=== PATIENT | female | born 1970 | race Caucasian/White ===

== ENCOUNTER 2022-01-05 14:11 | Outpatient (RCR) | payer OTHER, BC, SELFPAY ==
[2022-01-05 15:04] LABS: Albumin* 4.9 g/dL (3.3-5.0); Chloride* 100 mmol/L (96-114); Potassium* 3.6 mmol/L (3.6-5.1); Sodium* 140 mmol/L (135-149)
[2022-01-05 15:06] LABS: Bilirubin Total* 0.7 mg/dL (0.1-1.5); Carbon Dioxide* 29 mmol/L (20-32); Creatinine* 0.7 mg/dL (0.5-1.5); Estimated Glomerular Filt Rate 104 ml/min
[2022-01-05 15:07] LABS: Alanine Aminotransferase* 21 U/L (4-35); Alkaline Phosphatase* 55 U/L (40-150); Aspartate Amino Transferase* 30 U/L (12-35); Blood Urea Nitrogen* 20 mg/dL (7-30); Calcium* 9.6 mg/dL (8.4-10.6); Glucose* 68 mg/dL (60-115); Total Protein* 8.1 g/dL (6.0-8.3)
[2022-01-06 07:49] LABS: Basophils Absolute Auto 0.03 K/uL (0.00-0.30); Basophils Percent Auto 0.6 % (0.0-3.0); Eosinophils Absolute Auto 0.07 K/uL (0.00-0.50); Eosinophils Percent Auto 1.3 % (0.0-7.0); Hematocrit 44.7 % (33.0-51.0); Hemoglobin* 14.5 gm/dL (12.0-16.0); Immature Granulocytes Abs Auto 0.01 K/uL (0.00-0.30); Immature Granulocytes Pct Auto 0.2 %; Lymphocytes Absolute Auto 1.96 K/uL (0.90-2.90); Mean Corpuscular HGB Conc 32 gm/dL (32-36); Mean Corpuscular Hemoglobin 33 pg (26-34); Mean Corpuscular Volume 101 fL (80-100); Monocytes Percent Auto 8.3 % (0.0-11.0); Neutrophils Absolute Auto 2.92 K/uL (1.7-7.0); Neutrophils Percent Auto 53.6 % (42.0-72.0); Platelet Count* 274 K/uL (140-440); RDW Coefficient of Variation % 13.3 % (11.5-15.5); Red Blood Count 4.43 m/uL (4.00-5.20); White Blood Count* 5.44 K/uL (4.50-11.00)
[2022-01-06 07:51] LABS: Slide Review Reflex No
== END 2022-07-04 23:59 | disposition home or self-care (01) ==
LOC: CCIC 14:11
PROVIDERS: Visit Provider Internal Medicine Hematology & Oncology
DX: C50.911 Malignant neoplasm of unspecified site of right female breast (principal); Z17.0 Estrogen receptor positive status [ER+]; Z79.810 Long term (current) use of selective estrogen receptor modulators (SERMs)
CPT/HCPCS: 36415; 80053; 85025; 99212; 99213; 99214

== ENCOUNTER 2024-04-19 13:00 | Outpatient (RCR) | payer BC, OTHER, SELFPAY | END 2024-08-17 23:59 | disposition home or self-care (01) | PROVIDERS: PCP Obstetrics & Gynecology; Visit Provider Obstetrics & Gynecology | DX: M62.838 Other muscle spasm (principal); N94.10 Unspecified dyspareunia; Z51.89 Encounter for other specified aftercare | CPT/HCPCS: 97112; 97140; 97161; 97530; 97535 ==

== ENCOUNTER 2024-05-10 09:21 | Outpatient (CLI) | payer BC, OTHER, SELFPAY ==
--- NOTE | 2024-05-10 11:02 | P.ANES_ITS ---
Anesthesia Charges Start Date/Time Anesthesia Start Date: 05/10/24 Anesthesia Start Time: 10:48 Stop Date/Time Anesthesia Stop Date: 05/10/24 Anesthesia Stop Time: 11:20 Coding CPT Codes CPT Codes: ANES UPR LWR GI NDSC PX - 98721 ([id number]) P2 - PATIENT W/MILD SYST DISEASE, QK - DREDGE PUMPER 2-4 CNCRNT ANES PROC, QX - INFANT ROOM TEACHER SVC W/ MD MED DIRECTION
--- NOTE | 2024-05-10 11:02 | W.ANESCHARGE ---
Anesthesia Charges Start Date/Time Anesthesia Start Date: 05/10/24 Anesthesia Start Time: 10:48 Stop Date/Time Anesthesia Stop Date: 05/10/24 Anesthesia Stop Time: 11:20 Coding CPT Codes CPT Codes: ANES UPR LWR GI NDSC PX - [id number] ([id number]) P2 - PATIENT W/MILD SYST DISEASE, QK - HOOP RIVETER 2-4 CNCRNT ANES PROC, QX - COLOR ADVISER SVC W/ MD MED DIRECTION
--- NOTE | 2024-05-10 11:20 | P.ANES_ITS ---
Anesthesia Charges Start Date/Time Anesthesia Start Date: 05/10/24 Anesthesia Start Time: 10:48 Stop Date/Time Anesthesia Stop Date: 05/10/24 Anesthesia Stop Time: 11:20 Coding CPT Codes CPT Codes: ANES UPR LWR GI NDSC PX - 39579 ([id number]) P2 - PATIENT W/MILD SYST DISEASE, QX - ACCOUNT MANAGEMENT ASSISTANT SVC W/ MD MED DIRECTION, QK - TALENT ASSISTANT 2-4 CNCRNT ANES PROC
--- NOTE | 2024-05-10 11:20 | W.ANESCHARGE ---
Anesthesia Charges Start Date/Time Anesthesia Start Date: 05/10/24 Anesthesia Start Time: 10:48 Stop Date/Time Anesthesia Stop Date: 05/10/24 Anesthesia Stop Time: 11:20 Coding CPT Codes CPT Codes: ANES UPR LWR GI NDSC PX - [id number] ([id number]) P2 - PATIENT W/MILD SYST DISEASE, QX - CERTIFIED REGISTERED DENTAL ASSISTANT SVC W/ MD MED DIRECTION, QK - DELI MANAGER 2-4 CNCRNT ANES PROC
== END 2024-05-10 09:22 | disposition home or self-care (01) ==
LOC: OP CLINIC 09:22
PROVIDERS: Visit Provider Internal Medicine Gastroenterology
DX: Z12.11 Encounter for screening for malignant neoplasm of colon (principal); R76.8 Other specified abnormal immunological findings in serum; K31.89 Other diseases of stomach and duodenum; R19.7 Diarrhea, unspecified
CPT/HCPCS: 00813; 43239; 45380; 88305; J2704; J3490